=== PATIENT | female | born 2000 | race Caucasian/White ===

== ENCOUNTER 2021-06-02 00:08 | Emergency (ER) | payer BC, OTHER ==
[2021-06-02 00:19] VITALS: BP 122/74; PULSE 68; RESP 19; TEMP 99.5
--- NOTE | 2021-06-02 00:29 | ED ---
Eye Problem HPI - General Chief complaint: Eye Problems Stated complaint: ENT Time Seen by Provider: 06/02/21 00:27 Source: patient, RN notes reviewed, old records reviewed Mode of arrival: ambulatory Limitations: no limitations - History of Present Illness Initial comments: This is a 20-year-old female to the emergency room today. She is presenting wi th a recent history of sinus infection and coming in for a dilated pupil. Patient denying any significant blurry vision no headache no other complaints. No recent trauma or injury. No medical history takes no medications denies drug or alcohol abuse issue and right eye bigger the left eye last night and this morning has left eye greater than right eye MD chief complaint: other (1 larger than the other) -: hour(s) Onset Description: unknown Location: left eye Place: home If Injury: none Eye Symptoms: pain Severity: mild Severity scale (1-10): 3 If Pain, Quality: sharp Consistency: constant Context: recent uri Associated Symptoms: none Treatments Prior to Arrival: none - Related Data Allergies Allergy/AdvReac Type Severity Reaction Status Date / Time Penicillins Allergy Rash/Hives Verified 06/02/21 00:19 Review of Systems ROS Statement: Those systems with pertinent positive or pertinent negative responses have been documented in the HPI. ROS Other: All systems not noted in ROS Statement are negative. Past Medical History Past Medical History: No Reported History History of Any Multi-Drug Resistant Organisms: None Reported Past Surgical History: No Surgical Hx Reported Past Psychological History: No Psychological Hx Reported Smoking Status: Never smoker Past Alcohol Use History: None Reported Past Drug Use History: None Reported General Exam General appearance: alert, in no apparent distress Head exam: Present: atraumatic, normocephalic, normal inspection Eye exam: Present: normal appearance, PERRL, EOMI, other (Left eye greater than right eye). Absent: scleral icterus, conjunctival injection, periorbital swelling ENT exam: Present: normal exam, mucous membranes moist Neck exam: Present: normal inspection. Absent: tenderness, meningismus, lymphadenopathy Respiratory exam: Present: normal lung sounds bilaterally. Absent: respiratory distress, wheezes, rales, rhonchi, stridor Cardiovascular Exam: Present: regular rate, normal rhythm, normal heart sounds. Absent: systolic murmur, diastolic murmur, rubs, gallop, clicks GI/Abdominal exam: Present: soft, normal bowel sounds. Absent: distended, tenderness, guarding, rebound, rigid Extremities exam: Present: normal inspection, full ROM, normal capillary refill. Absent: tenderness, pedal edema, joint swelling, calf tenderness Back exam: Present: normal inspection Neurological exam: Present: alert, oriented X3, CN II-XII intact Psychiatric exam: Present: normal affect, normal mood Skin exam: Present: warm, dry, intact, normal color. Absent: rash Course Vital Signs 06/02/21 00:15 Temperature 99.5 F Pulse Rate 68 Respiratory 19 Rate Blood Pressure 122/74 O2 Sat by Pulse 98 Oximetry - Reevaluation(s) Reevaluation #1: Medical record is reviewed Patient symptoms are significantly improved here in the ER Patient informed of results and questions are answered Patient is in no acute distress Medical Decision Making - Medical Decision Making 20-year-old female to the emergency department for evaluation patient presents today for evaluation regards to left eye greater than right, CT brain is negative for acute disease a patient can be discharged home - Radiology Data Radiology results: report reviewed (CT brain is negative for acute disease), image reviewed Disposition Clinical Impression: Adie's pupil, Anisocoria, Sinusitis Disposition: HOME SELF-CARE Condition: Good Instructions (If sedation given, give patient instructions): Blurred Vision (ED) Is patient prescribed a controlled substance at d/c from ED?: No Referrals: Liam Saldivar MD [STAFF PHYSICIAN] - 1-2 days
--- NOTE | 2021-06-02 00:59 | CT ---
EXAMINATION TYPE: CT brain wo con DATE OF EXAM: 06/02/2021 COMPARISON: HISTORY: left pupil is larger than right. left eye pressure. sore throat CT DLP: 1007.4 mGycm Automated exposure control for dose reduction was used. Ventricles and sulci appear normal. There is no mass effect nor midline shift. There is no sign of in tracranial hemorrhage. Calvarium is intact. There is no evidence of orbital mass. IMPRESSION: Negative unenhanced head CT scan. Minimal maxillary sinusitis noted.
== END 2021-06-02 01:25 | disposition home or self-care (01) ==
LOC: EC 00:08
DX: H57.02 Anisocoria (principal); H57.052 Tonic pupil, left eye; J32.0 Chronic maxillary sinusitis; Z88.0 Allergy status to penicillin
CPT/HCPCS: 70450; 99283

== ENCOUNTER → 2023-07-03 | Outpatient (CLI) | payer BC | END | disposition home or self-care (01) | LOC: LABWHC1 07:49 | PROVIDERS: ATTEND Internal Medicine Endocrinology, Diabetes & Metabolism | DX: R53.83 Other fatigue (principal) | CPT/HCPCS: 36415; 82533 ==